=== PATIENT | female | born 1960 | race Two or more races ===

== ENCOUNTER 2016-05-26 19:16 | Inpatient (IN) | payer OTHER ==
[~2016-05-26] VITALS: Ht 157.5 cm; Wt 61.8 kg
[2016-05-26] MEDS ORDERED: SODIUM CHLORIDE FLUSH 10ML SYR IVF ONE (19:30)
[2016-05-26 19:55] LABS: HEMOGLOBIN 11.5 g/dL (11.7-16.4)
[2016-05-26] MEDS ORDERED: METF10002 PO (20:08)
[2016-05-26 20:10] LABS: BLOOD UREA NITROGEN 19 mg/dL (7-18)
[2016-05-26] MEDS ORDERED: CHOLESTEROL (20:10)
[2016-05-26] MEDS ORDERED: [UNRECOGNIZED DRUG - OTHER] (20:10)
[2016-05-26] MEDS ORDERED: INSU100V13 INJ (20:10)
[2016-05-26 20:12] LABS: DIFF TOTAL CELLS COUNTED 100 CELL DIFF
[2016-05-26 20:15] LABS: ASPARTATE AMINO TRANSFERASE 18 U/L (15-37); VERIFY COUNTS? YES
[2016-05-26 20:19] LABS: IS PT STATUS REG ER OR PRE ER? YES
[2016-05-26] MEDS ORDERED: ACETAMINOPHEN 325 MG TABLET PO PRN (22:00)
[2016-05-26] MEDS ORDERED: DOCUSATE 100 MG CAPSULE PO PRN (22:00)
[2016-05-26] MEDS ORDERED: ATORVASTATIN 10 MG TABLET PO SCH (22:00)
[2016-05-26] MEDS ORDERED: LABETALOL 5MG/ML, 20ML IV PRN (22:00)
[2016-05-26] MEDS ORDERED: TEMAZEPAM 15 MG CAPSULE PO PRN (22:00)
[2016-05-26] MEDS ORDERED: NITROGLYCERIN 0.4 MG/SPRAY SL PRN (22:00)
[2016-05-26 23:00] VITALS: BP 117/73
[2016-05-27] MEDS: INSULIN DETEMIR 100 UNITS/ML, PEN SQ-INSULIN SCH ×2 (00:25→08:26)
[2016-05-27 02:00] VITALS: BP 118/67
[2016-05-27 03:06] LABS: IS PT STATUS REG ER OR PRE ER? NO
[2016-05-27 07:06] VITALS: BP 112/68
[2016-05-27] MEDS ORDERED: OMEPRAZOLE 20 MG CAPSULE.DR PO SCH (07:30)
[2016-05-27] MEDS: INSULIN REGULAR 100 UNITS/ML, 3ML VIAL SQ-INSULIN SCH ×2 (08:27→11:48)
[2016-05-27] MEDS ORDERED: FENOFIBRATE 145 MG TABLET PO SCH (09:00)
[2016-05-27 09:02] LABS: HEMOGLOBIN 11.3 g/dL (11.7-16.4)
[2016-05-27 09:15] LABS: BLOOD UREA NITROGEN 15 mg/dL (7-18)
[2016-05-27 09:20] LABS: IS PT STATUS REG ER OR PRE ER? NO
[2016-05-27] MEDS ORDERED: FENO145T32 PO (11:41)
[2016-05-27] MEDS ORDERED: ATOR10TA9 PO (11:41)
[2016-05-27] MEDS ORDERED: ALPR-475 PO (11:49)
[2016-05-27] MEDS ORDERED: MAGNESIUM SULFATE PMX 2GM/50ML 50 ML IV ONE (13:00)
[2016-05-27] MEDS ORDERED: metFORMIN 500 MG TABLET PO SCH (21:00)
== END 2016-05-27 16:24 | disposition home or self-care (01) | DRG 951 ==
LOC: ED 19:54 → EDIP 21:08 → 5SO 22:50
PROVIDERS: ADMIT Internal Medicine; ATTEND Internal Medicine
DX: Z88.6 Allergy status to analgesic agent (principal); R07.89 Other chest pain; F41.9 Anxiety disorder, unspecified; R06.02 Shortness of breath; I10 Essential (primary) hypertension; E78.5 Hyperlipidemia, unspecified; E11.9 Type 2 diabetes mellitus without complications; Z82.3 Family history of stroke; Z79.4 Long term (current) use of insulin; Z90.49 Acquired absence of other specified parts of digestive tract; Z90.710 Acquired absence of both cervix and uterus; Z90.722 Acquired absence of ovaries, bilateral
CPT/HCPCS: 36415; 70450; 71010; 80048; 80053; 80061; 82962; 83036; 83735; 84484; 85025; 93005; 93880; 99285; J1815; J3475